=== PATIENT | male | born 1975 | race Caucasian/White ===

== ENCOUNTER 2021-02-02 08:23 | Emergency (ER) | payer OTHER, SELFPAY ==
--- NOTE | ~2021-02-02 | XR_ITS ---
EXAMINATION: XR hand RT min 3V EXAM DATE: 02/02/2021 09:03 INDICATION: Right hand pain. No history of injury provided at this time. TECHNIQUE: Right hand frontal, lateral and oblique projections obtained and reviewed. There is no pr ior study for comparison. FINDINGS: Right metacarpal bones are unremarkable. There are no acute fractures or dislocations iden tified. There is no subcutaneous gas. The soft tissue is unremarkable. There are no radiopaque fo reign bodies. There are no bony erosions identified. IMPRESSION: 1. XR hand RT min 3V exam without acute osseous findings. Reviewed, dictated and finalized at location B. HAND MAINTENANCE
[2021-02-02 09:30] VITALS: BP 150/99; PULSE 87; RESP 18; TEMP 37.1; O2SAT 99
--- NOTE | 2021-02-02 09:33 | ED.UPPEXIN ---
HPI - Extremity Injury (Upper) General Chief Complaint: Extremity Injury, Upper Stated Complaint: table saw VS hand Time Seen by Provider: 02/02/21 09:13 Source: patient Mode of arrival: ambulatory Limitations: no limitations History of Present Illness HPI narrative: This is a 45 year old male that presents to the ER for injury to the right hand sustained just prior to arrival. Reports he was using a table saw to cut a piece of wood and the saw kicked back and the piece of wood flew out at his hand. Reports a laceration to the area and pain. He is not up to date on tetanus. Denies decreased ROM or numbness. Related Data Allergies Allergy/AdvReac Type Severity Reaction Status Date / Time No Known Allergies Allergy Verified 03/25/17 20:55 Review of Systems Review of Systems: CONSTITUTIONAL: Denies fever SKIN: Reports laceration MUSCULOSKELETAL: Reports myalgia. NEUROLOGIC: Denies numbness All systems reviewed & are unremarkable except as noted in HPI and below PMFSH Past Medical History Medical History (Updated 02/02/21 @ 10:32 by Nupur Napoles PA-C) History of hypertension Social History Social History (Updated 02/02/21 @ 09:35 by Nupur Napoles PA-C) Smoking status: Current every day smoker Tobacco type: e-cigarettes/vaping Exam Narrative: GENERAL: Well-appearing, well-nourished, and in no acute distress. HEAD: Normocephalic, atraumatic. EYES: EOMI. EXTREMITIES: Normal range of motion. No edema or obvious deformity. Normal radial pulses. Normal sensation. 2cm flap laceration to the dorsal surface of the right hand into subcutaneous tissue SKIN: Warm, dry, no rash. NEURO: No focal deficits. Alert and oriented x3. PSYCH: Normal mood and affect Course Vital Signs Vital signs: Vital Signs Temperature 98.7 F 02/02/21 09:30 Pulse Rate 87 02/02/21 09:30 Respiratory Rate 18 02/02/21 09:30 Blood Pressure 150/99 H 02/02/21 09:30 Pulse Oximetry 99 02/02/21 09:30 Temperature 98.7 F 02/02/21 09:30 Pulse Rate 87 02/02/21 09:30 Respiratory Rate 18 02/02/21 09:30 Blood Pressure 150/99 H 02/02/21 09:30 Pulse Oximetry 99 12/15/21 09:30 Procedures Laceration Laceration 1: Date: 02/02/21 Time: 10:30 Site: hand Side (If applicable): right Size (cm): 2 Description: flap Depth: simple, single layer Local Anesthetic: lidocaine 1% and with epi Amount of anesthesia used (mL): 2 Pre-repair: wound explored and irrigated ====== Skin Level ====== Skin layer closed with: nylon Size (cm): 4-0 Number of sutures: 3 Technique: simple, interrupted ====== Subcutaneous Layer ====== ====== Muscle Layer ====== ====== Tendon Layer ====== MDM - Extremity Injury (Upper) MDM Narrative Medical decision making narrative: Patient presents emergency department for laceration of the right hand sustained just prior to arrival. Patient is neurovascularly intact. Wound was irrigated and closed with sutures. Right hand x-ray without acute osseous abnormalities. Patient will be started on prophylactic antibiotic as this is a bit of a puncture wound and on the hand. He was educated on wound care. He is to follow-up with primary care doctor. He was given warnings to return to the ER Imaging Data Radiologist's impression: ITS Impressions Hand X-Ray 02/02/21 09:05 IMPRESSION: 1. XR hand RT min 3V exam without acute osseous findings. Critical Care Time Critical Care Time Critical Care Time: No Discharge Plan Discharge Clinical Impression: Laceration Patient Disposition: Home, Self-Care Condition: Stable Instructions: Antibiotic Form, Care For Your Stitches (ED), Laceration (ED) Additional Instructions: Return to the emergency department if you experience fever, redness or swelling of your wound, abnormal drainage from your wound, or any other sym
[2021-02-02] MEDS: TETANUS,DIPHTHERIA,AC PERTUSSIS ADULT (0.5 ML) BOOSTRIX IM (10:20)
--- NOTE | 2021-02-02 10:45 | PC.NURSE ---
JHOAN Napoles completed stitches pt tolerated well, she wrapped area, pt denied any additional pain pulses normal, will discharge soon
[2021-02-02 11:01] VITALS: BP 160/92; PULSE 88; RESP 18; O2SAT 98
== END 2021-02-02 11:02 | disposition home or self-care (01) ==
PROVIDERS: Emergency Provider Emergency Medicine; PCP Family Medicine Adolescent Medicine
DX: S61.411A Laceration without foreign body of right hand, initial encounter (principal); I10 Essential (primary) hypertension; F17.290 Nicotine dependence, other tobacco product, uncomplicated; Z23 Encounter for immunization; W26.8XXA Contact with other sharp object(s), not elsewhere classified, initial encounter
CPT/HCPCS: 12001; 73130; 90471; 90715; 99283

== ENCOUNTER 2022-09-27 08:14 | Outpatient (CLI) | payer OTHER, SELFPAY ==
--- NOTE | 2022-10-18 11:35 | WPDSLEEPSTUD ---
Sleep Study Date of Study: 09/27/22 Ordering Provider: Briana Bonilla APRN Interpreting Physician: Radhika Vega MD Sleep Study Type: CPAP Titration Height: 1.7 m Weight: 139.706 kg Body Mass Index: 48.2 Neck Circumference (inches): 20 [place]: 11 Reason for Sleep Study He has obstructive sleep apnea on CPAP, most recent compliance report shows that he uses CPAP 10 cm with 2 cm EPR. His AHI is 8.8, no central apneas. He had no Jose-Tyson respirations. He used greater than 96% the days for 4 hours or more. He is compliant with CAPP but does not feel rested; presents for a CPAP titration. Sleep History Deny Rae is a 47-year old man Who frequently awakens from sleep feeling short of breath. He occasionally awakens at night with heartburn, belching or coughing. He always snores loudly enough that others complain about it. He frequently has difficulty sleeping with a cold. He occasionally wakes up gasping for breath at night. He frequently has breathing problems at night observed by others. He rarely sweats excessively at night and rarely notices his heart beating irregularly at night. He does not fall asleep during the day, does not fall asleep involuntarily or while driving. He does not have loss of muscle tone with strong emotion. He occasionally has daytime difficulties due to excessive sleepiness. He is a allison. He does not feel paralyzed on waking or falling asleep. He does not have vivid dreamlike scenes on waking or falling asleep. He does not feel afraid to go to sleep. He does not have nightmares. He does not remember his dreams. He occasionally has racing thoughts. He occasionally feels sad or depressed. He does not have anxiety. He occasionally has muscular tension. He rarely notices parts of his body jerking. He frequently kicks at night. He does not have crawling or aching feelings in his legs. He rarely has any kind of leg pain at night. He does not have morning jaw pain. He does not grind his teeth during sleep. He occasionally is bothered by pain during the day. He rarely is awakened by pain at night. He occasionally wakes up feeling stiff in the morning with sore achy muscles and pain in the neck and spine. He has headaches and fatigue. Normal bedtime is 9:30 p.m., falling asleep within minutes. He typically wakes between 5 and 6 times during the night to go to the bathroom and then he returns to sleep. It takes him about 5/10 minutes to return to sleep. He wakes the morning between 6 and 7:00 a.m.. On weekends, his bedtime may be as late as midnight and he sleeps until 8-9 in the morning. He estimates getting between 7 and 8 hours of sleep at night. He does not generally take naps in the afternoon or evening. A short nap lasting 10-15 minutes is not refreshing. He is usually drowsy for 2 hours after waking. He feels better in the evening compared to other times of day. Habits: Tobacco: he vapes. Caffeine: 2-3 daily. Alcohol: Social drinker. Recreational: None. [facility] Past Medical History Medical History Hypertension Major depressive disorder, recurrent, mild Morbid obesity with BMI of 45.0-49.9, adult JAKE on CPAP Surgical History Surgical History Vasectomy status Family History Family History Father Acute myocardial infarction Triple and quadruple bypass Congestive heart failure Hypertension Heart disease Grandparent Acute myocardial infarction Congestive heart failure Grandparent Congestive heart failure Grandparent Breast cancer Other Malignant neoplasm of prostate Diabetes mellitus Mother Asthma Hypertension Sibling Cancer Hypertension Large cell lymphoma Other Depression Social History Social History Smo
[2022-10-18 12:33] VITALS: BMI 48.2
== END 2022-09-28 06:53 | disposition home or self-care (01) ==
LOC: ANHCSM 08:16
PROVIDERS: PCP Family Medicine Adolescent Medicine; Visit Provider Nurse Practitioner Family
DX: G47.33 Obstructive sleep apnea (adult) (pediatric) (principal); I10 Essential (primary) hypertension; R68.82 Decreased libido; E66.01 Morbid (severe) obesity due to excess calories; F33.0 Major depressive disorder, recurrent, mild; F17.290 Nicotine dependence, other tobacco product, uncomplicated; Z68.42 Body mass index [BMI] 45.0-49.9, adult; Z99.89 Dependence on other enabling machines and devices
CPT/HCPCS: 95811

== ENCOUNTER 2022-10-20 01:46 | Day surgery (SDC) | payer OTHER, SELFPAY ==
[2022-10-06 12:28] VITALS: BMI 48.3
--- NOTE | 2022-10-19 07:51 | PM.HPGS ---
History of Present Illness History of Present Illness Consent: Risks, benefits, and alternatives have been discussed and questions answered. Patient agrees to proceed with procedure. Chief complaint: neoplasm screening Narrative: Deny Rae is a 47 year old male Referred for colon cancer screening. Review of Systems Review of Systems: All systems reviewed & are unremarkable except as noted in HPI and below PMFSH Past Medical History Medical History Hypertension Major depressive disorder, recurrent, mild Morbid obesity with BMI of 45.0-49.9, adult JAKE on CPAP Surgical History Surgical History Vasectomy status Family History Family History Father Acute myocardial infarction Triple and quadruple bypass Congestive heart failure Hypertension Heart disease Grandparent Acute myocardial infarction Congestive heart failure Grandparent Congestive heart failure Grandparent Breast cancer Other Malignant neoplasm of prostate Diabetes mellitus Mother Asthma Hypertension Sibling Cancer Hypertension Large cell lymphoma Other Depression Social History Social History Smoking status: Current every day smoker Tobacco type: e-cigarettes/vaping Second hand tobacco smoke exposure: No Alcohol intake: current Alcohol use details: Social Substance use: never Substance use type: does not use Lack of Transportation: No Lack of Food: Never True Current Housing: I Have Housing Concerned About Future Housing: No Difficulty Paying Gas/Electric Bills: No Difficulty Paying for Meds: No Currently Unemployed: No Education: Trade/Vocational Certificate Difficulty w/ Childcare or Family Care: No Living arrangements: with family Occupation/Education: occupation Gender identity (if verbalized by the patient): Male Sexual Orientation (if Verbalized by the Patient): Straight or Heterosexual Spiritual care concerns: No Agree to blood products: Yes Meds Home Medications and Allergies Home Medications Medication Instructions Recorded Confirmed Type amlodipine 5 mg tablet 5 mg PO DAILY #30 tabs 08/14/22 10/06/22 Rx hydrochlorothiazide 25 mg tablet 25 mg PO DAILY #30 tabs 08/14/22 10/06/22 Rx lisinopril 40 mg tablet 40 mg PO DAILY #30 tabs 08/14/22 10/06/22 Rx venlafaxine 37.5 mg tablet 37.5 mg PO BID #60 tabs 08/14/22 10/06/22 Rx Allergies Allergy/AdvReac Type Severity Reaction Status Date / Time No Known Allergies Allergy Verified 10/20/22 06:19 Exam Const: Nutritional Appearance: obese Resp: Auscultation: clear to auscultation bilaterally Cardio: Rate: regular rate Rhythm: regular rhythm GI: GI Palp: Yes Soft to palpation and No Tenderness to palpation present (GI) Assessment and Plan Assessment and plan (1) Colon cancer screening: Code(s): Z12.11 - Encounter for screening for malignant neoplasm of colon Status: Acute Assessment and Plan: Colonoscopy with possible biopsy or polypectomy or cautery or injection of substances.
[2022-10-20 06:20] VITALS: BP 136/89; PULSE 84; RESP 16; TEMP 36.1; O2SAT 99
[2022-10-20] MEDS: LACTATED RINGERS 1,000 ML 150 ML IV CONT (06:35)
--- NOTE | 2022-10-20 07:15 | WPDANESEPPF ---
Anes - Initial Pre Proc Eval Procedure: Operation Date: 10/20/22 07:30 Proposed Procedures p Screening Colonoscopy - Jules Dunlap MD Date/Time: 10/20/22 07:15 Surgeon: Jules Dunlap MD Pre Op Diagnosis: neoplasm screening Patient Data Age: 47 Gender: M Height: 1.7 m Weight: 136.1 kg Last Vital Signs Temp 97 F L 10/20/22 06:20 Pulse 84 10/20/22 06:20 Resp 16 10/20/22 06:20 BP 136/89 10/20/22 06:20 Pulse Ox 99 10/20/22 06:20 O2 Del Method Room Air 10/20/22 06:20 Allergies Allergy/AdvReac Type Severity Reaction Status Date / Time No Known Allergies Allergy Verified 10/20/22 06:19 Home Medications Medication Instructions Recorded Confirmed Type amlodipine 5 mg tablet 5 mg PO DAILY #30 tabs 08/14/22 10/06/22 Rx hydrochlorothiazide 25 mg tablet 25 mg PO DAILY #30 tabs 08/14/22 10/06/22 Rx lisinopril 40 mg tablet 40 mg PO DAILY #30 tabs 08/14/22 10/06/22 Rx venlafaxine 37.5 mg tablet 37.5 mg PO BID #60 tabs 08/14/22 10/06/22 Rx Patient hx anesthesia problems: none Family hx anesthesia problems: none Results Review: All pre-operative results and documents have been reviewed as part of the pre-operative evaluation. [facility] Past Medical History Medical History Hypertension Major depressive disorder, recurrent, mild Morbid obesity with BMI of 45.0-49.9, adult JAKE on CPAP Surgical History Surgical History Vasectomy status Family History Family History Father Acute myocardial infarction Triple and quadruple bypass Congestive heart failure Hypertension Heart disease Grandparent Acute myocardial infarction Congestive heart failure Grandparent Congestive heart failure Grandparent Breast cancer Other Malignant neoplasm of prostate Diabetes mellitus Mother Asthma Hypertension Sibling Cancer Hypertension Large cell lymphoma Other Depression Social History Social History Smoking status: Current every day smoker Tobacco type: e-cigarettes/vaping Second hand tobacco smoke exposure: No Alcohol intake: current Alcohol use details: Social Substance use: never Substance use type: does not use Lack of Transportation: No Lack of Food: Never True Current Housing: I Have Housing Concerned About Future Housing: No Difficulty Paying Gas/Electric Bills: No Difficulty Paying for Meds: No Currently Unemployed: No Education: Trade/Vocational Certificate Difficulty w/ Childcare or Family Care: No Living arrangements: with family Occupation/Education: occupation Gender identity (if verbalized by the patient): Male Sexual Orientation (if Verbalized by the Patient): Straight or Heterosexual Spiritual care concerns: No Agree to blood products: Yes Anes - Eval Final PreProcedure Day of Procedure 10/20/22 07:15 Patient weight: morbidly obese Heart: regular rate and rhythm Lungs: clear to auscultation Airway: Mallampati scale class III Neurological: alert and oriented Last oral intake: >/= 8 hours ASA classification: III Emergent: no Anesthetic plan: proceed Anesthesia type and monitoring: general GIVS and standard monitoring Results Review: All pre-operative results and documents have been reviewed as part of the pre-operative evaluation. Informed Consent: The patient's anesthetic plan and its attendant risks and benefits were discussed with the patient/family/POA. Questions were solicited and answers provided to the satisfaction of the patient/family/POA.
[2022-10-20 07:49] VITALS: BP 147/102; PULSE 82; RESP 22; O2SAT 98
[2022-10-20 07:59] VITALS: BP 138/97; PULSE 75; RESP 18; O2SAT 98
[2022-10-20 08:09] VITALS: BP 138/98; PULSE 80; RESP 18; O2SAT 99
== END 2022-10-20 08:15 | disposition home or self-care (01) ==
PROVIDERS: PCP Family Medicine Adolescent Medicine; Visit Provider Internal Medicine Gastroenterology
PROC: 0DJD8ZZ Inspection of Lower Intestinal Tract, Via Natural or Artificial Opening Endoscopic (ICD-10-PCS; CPT 45378; principal; 2022-10-20 07:30)
DX: Z12.11 Encounter for screening for malignant neoplasm of colon (principal); K57.30 Diverticulosis of large intestine without perforation or abscess without bleeding; I10 Essential (primary) hypertension; G47.33 Obstructive sleep apnea (adult) (pediatric); F33.0 Major depressive disorder, recurrent, mild; E66.01 Morbid (severe) obesity due to excess calories; Z68.42 Body mass index [BMI] 45.0-49.9, adult; F17.290 Nicotine dependence, other tobacco product, uncomplicated
CPT/HCPCS: 45378; J2704; J7120

== ENCOUNTER 2024-11-14 12:48 | Observation (INO) | payer OTHER, SELFPAY ==
[2024-11-14] VITALS (10 sets, daily range): BP systolic 113–141; BP diastolic 61–77; PULSE 80–106; RESP 16–21; TEMP 36.7–36.9; O2SAT 95–100; BMI 45.1
--- NOTE | ~2024-11-14 | CT_ITS ---
EXAMINATION: CTA chest abdomen pelvis DATE: 11/14/2024 15:00 CDT INDICATION: Chest pain. Elevated lipase. TECHNIQUE: Computed tomographic angiography (CTA) of the chest, abdomen, and pelvis was performed without and with 100 mL Omnipaque-350 intravenous contrast. The dose-length product was 1926.40 mGy-cm. Maximum intensity projection 3D- reconstructions of the aorta and other arteries were constructed by the technologist on a separate workstation. COMPARISON: CT dated 09/18/2013. FINDINGS: CHEST CTA: Heart size normal. No significant pleural or pericardial effusion. No thoracic lymphadenopathy. There is a 1.6 cm hypovascular mass of the right thyroid lobe. There is dependent atelectasis. No focal consolidation to suggest pneumonia. No endobronchial lesions. No pneumothorax. No central pulmonary embolism. Aorta is within normal limits without aneurysm or dissection. Mild thoracic spondylosis. ABDOMEN AND PELVIS CTA: Fatty infiltration of the liver. Gallbladder is contracted. The spleen, pancreas, adrenal glands and kidneys are unremarkable. No significant vascular abnormality. No lymphadenopathy. Bladder is unremarkable. No abnormal pelvic masses or fluid collections. No free air or free fluid. Moderate lower thoracic and upper lumbar spondylosis. IMPRESSION: 1. No acute abnormality of the chest, abdomen or pelvis. Reviewed, dictated and finalized at location O.
--- NOTE | ~2024-11-14 | US_ITS ---
EXAMINATION: US thyroid DATE: 11/15/2024 13:21 INDICATION: Right thyroid nodule. TECHNIQUE: Multiple ultrasound images of the thyroid were obtained. COMPARISON: None. FINDINGS: The right thyroid lobe measures 4.5 x 1.8 x 2.2 cm. The left thyroid lobe measures 1.4 x 1.4 x 3.2 cm. In the right thyroid lobe, there is a 2.7 cm mixed cystic and solid, isoechoic, wider than tall nodule with ill-defined margin without echogenic foci (TI-RADS TR2). IMPRESSION: 1. Right thyroid nodule, likely not clinically significant. No follow-up is needed. Reviewed, dictated and finalized at location E. IMPRESSION: 1. Right thyroid nodule, likely not clinically significant. No follow-up is nee ded.
--- NOTE | ~2024-11-14 | XR_ITS ---
Examination: XR chest 2V Clinical History: CP Comparison: No recent comparison Technique: PA and Lateral Findings: Cardiomediastinal silhouette normal size and configuration. Lungs clear. No acute bony abnormality. IMPRESSION: 1. No acute cardiopulmonary findings. Reviewed, dictated and finalized at location R.
--- NOTE | 2024-11-14 12:53 | ECG_ITS ---
Test Date: 2024-11-14 12:56:19 Measurements Intervals [place] Rate: 96 P: 64 FL: 151 QRS: 54 QRSD: 104 T: 47 QT: 356 QTc: 451 Interpretive Statements SINUS RHYTHM POSSIBLE LEFT ATRIAL ENLARGEMENT [-0.1mV P-WAVE IN V1/V2] POSSIBLE INFERIOR MYOCARDIAL INFARCTION , OF INDETERMINATE AGE [30 ms Q WAVE IN II/aVF] No previous ECG available for comparison Electronically Signed On 11-14-2024 20:06:04 CDT by Bety Graves M.D.
[2024-11-14 13:12] LABS: Hematocrit 43.7 % (42.0-52.0); Hemoglobin 14.4 g/dL (14.0-18.0); Immature Granulocyte Percent A 0.4 % (0-0.5); Lymphocytes Absolute Auto 1.46 K/mm3 (0.9-3.2); Mean Corpuscular HGB Conc 33.0 g/dl (32-36); Mean Corpuscular Hemoglobin 29.3 pg (26-34); Mean Corpuscular Volume 88.8 fl (80-100); Nucleated Red Blood Cells Absolute Auto 0.000 K/mm3 (0.0-0.012); Nucleated Red Blood Cells Perc 0.0 % (0.0-0.2); Platelet Count Result 493 k/mm3 (150-375); Red Blood Count 4.92 M/mm3 (4.6-6.20); White Blood Count 11.3 K/mm3 (4.5-10.0)
[2024-11-14 13:24] LABS: Alanine Aminotransferase 46 U/L (6-50); Albumin Level 4.3 g/dL (3.5-5.1); Alkaline Phosphatase 75 U/L (38-126); Anion Gap 11 mmol/L (4-12); Aspartate Amino Transferase 27 U/L (17-59); Bilirubin,Total 0.5 mg/dL (0.2-1.3); Blood Urea Nitrogen 24 mg/dL (9-20); Calcium 8.9 mg/dL (8.4-10.2); Carbon Dioxide 25 mmol/L (22-30); Chloride 100 mmol/L (98-107); Estimated CRCL calculation 78 ml/min; Estimated Glomerular Filt Rate 53; Glucose 93 mg/dL (65-110); Lipase 962 U/L (23-300); Potassium 4.0 mmol/L (3.4-5.0); Sodium 136 mmol/L (137-145); Total Protein 7.9 g/dL (6.3-8.2)
[2024-11-14 13:32] LABS: INR 1.3; Prothrombin Time 15.9 Seconds (11.1-14.7)
[2024-11-14 13:33] LABS: Partial Thromboplastin Time 28.5 Seconds (22.3-36.8)
[2024-11-14 13:41] LABS: Troponin I < 0.012 ng/mL (0.000-0.034)
--- NOTE | 2024-11-14 14:37 | ED.CHESTPAIN ---
HPI - Chest Pain General Chief Complaint: Chest Pain <Nupur Napoles PA-C - Last Filed: 11/14/24 17:24> Stated Complaint: Chest Pain <Nupur Napoles PA-C - Last Filed: 11/14/24 17:24> Time Seen by Provider: 11/14/24 14:37 <Nupur Napoles PA-C - Last Filed: 11/14/24 17:24> Focused HPI: This is a 49-year-old male that presents to the emergency department for chest pain. Reports he has been feeling unwell over the last 2 weeks. Reports fevers, vomiting. Reports today he had an episode of substernal chest pain radiating to the left arm which prompted him to be seen. GENERAL: Uncomfortable, well-nourished, and in no acute distress. HEAD: Normocephalic, atraumatic. CHEST: Clear to auscultation. ?No respiratory distress. HEART: Regular rate and rhythm.? NEURO: ?Alert and oriented x3. Patient screened in triage and initial orders placed.? ?Additional care and disposition to be based upon?diagnostic testing and treatment. <Nupur Napoles PA-C - Last Filed: 11/14/24 17:24> History of Present Illness HPI narrative: I agree with the above patient <Rizwan Meza MD - Last Filed: 11/14/24 19:00> Related Data Home Medications: Home Medications ?Medication ?Instructions ?Recorded ?Confirmed ?Last Taken ?Type venlafaxine 37.5 mg tablet 75 mg PO HS 11/14/24 11/14/24 11/13/24 History <Nupur Napoles PA-C - Last Filed: 11/14/24 17:24> Allergies/Adverse Reactions: Allergies Allergy/AdvReac Type Severity Reaction Status Date / Time No Known Allergies Allergy Verified 11/14/24 15:11 <Nupur Napoles PA-C - Last Filed: 11/14/24 17:24> Review of Systems Review of Systems: All systems reviewed & are unremarkable except as noted in HPI and below <Nupur Napoles PA-C - Last Filed: 11/14/24 17:24> PMFSH Past Medical History Medical History: Medical History (Updated 11/14/24 @ 17:40 by Faustina Oconnor APRN) Type 2 diabetes mellitus Morbid obesity with BMI of 45.0-49.9, adult Major depressive disorder, recurrent, mild JAKE on CPAP Hypertension <Nupur Napoles PA-C - Last Filed: 11/14/24 17:24> Surgical History Surgical History: Surgical History Vasectomy status <Nupur Napoles PA-C - Last Filed: 11/14/24 17:24> Family History Family History: Family History Father Acute myocardial infarction Triple and quadruple bypass Congestive heart failure Hypertension Heart disease Grandparent Acute myocardial infarction Congestive heart failure Breast cancer Mother Asthma Hypertension Sibling Cancer Hypertension Large cell lymphoma Other Depression <Nupur Napoles PA-C - Last Filed: 11/14/24 17:24> Social History Social History: Social History (Updated 05/06/24 @ 14:36 by BENITA Irving) Years smoked: 32 Smoking status: Current every day smoker Tobacco type: e-cigarettes/vaping Second hand tobacco smoke exposure: No Alcohol intake: never Alcohol use details: Social Substance use: never Substance use type: does not use Do You Feel Safe in your Home?: Yes Lack of Transportation: No Lack of Food: Never True Current Housing: I Have Housing Concerned About Future Housing: No Difficulty Paying Gas/Electric Bills: No Difficulty Paying for Meds: No Currently Unemployed: No Education: Don't Know Difficulty w/ Childcare or Family Care: No Living arrangements: with family Occupation/Education: occupation Gender identity (if verbalized by the patient): Male Sexual Orientation (if Verbalized by the Patient): Straight or Heterosexual Spiritual care concerns: No Agree to blood products: Yes <ANSELMO Thornton Last Filed: 11/14/24 17:24> Exam Narrative: APPEARANCE: Well appearing, no pain, no distress, well-nourished. HEAD: normocephalic, atraumatic. EYES: PERRLA/EOMI, conjunctivae clear. NOSE: Normal no drainage EARS:TMS clear with good light reflex. THROAT: Pharynx clear, no exudate. NECK: Supple. No adenopathy, no masses. RESPIRATORY: Airway patent, respirations nonlabored. Clear to auscultation bilaterally, no rales, rhonchi, wheezing. CARDIOVASCULAR: Regular rate and rhythm without murmurs rubs or gallops. ABDOMINAL: Soft, nontender, nondistended, normal bowel sounds MUSCULOSKELETAL: Moves all extremities. Strength/ROM intact, No edema, No calf tenderness. NEURO: Alert. Cranial nerves II through XII intact. Good gait. Good coordination SKIN: Warm, dry. Normal Color <Rizwan Meza MD - Last Filed: 11/14/24 19:00> Course Vital Signs Vital signs: Vital Signs Temperature 98.2 F 11/14/24 12:54 Pulse Rate 100 11/14/24 12:54 Respiratory Rate 16 11/14/24 12:54 Blood Pressure 123/71 11/14/24 12:54 Pulse Oximetry 100 11/14/24 12:54 Temperature 98.4 F 11/14/24 17:20 Pulse Rate 80 11/14/24 18:00 Respiratory Rate 18 11/14/24 17:20 Blood Pressure 141/77 H 11/14/24 17:20 Pulse Oximetry 96 11/14/24 17:20 Oxygen Delivery Room Air 11/14/24 15:09 <Nupur Napoles PA-C - Last Filed: 11/14/24 17:24> Vital Signs Temperature 98.2 F 11/14/24 12:54 Pulse Rate 100 11/14/24 12:54 Respiratory Rate 16 11/14/24 12:54 Blood Pressure 123/71 11/14/24 12:54 Pulse Oximetry 100 11/14/24 12:54 Temperature 98.4 F 11/14/24 17:20 Pulse Rate 80 11/14/24 18:00 Respiratory Rate 18 11/14/24 17:20 Blood Pressure 141/77 H 11/14/24 17:20 Pulse Oximetry 96 11/14/24 17:20 Oxygen Delivery Room Air 11/14/24 15:09 <Rizwan Meza MD - Last Filed: 11/14/24 19:00> MDM - Chest Pain MDM Narrative Medical decision making narrative: 49-year-old male presents to the emergency department for evaluation for intermittent chest pain. Patient does have history of diabetes, hypertension, high cholesterol. Patient has no prior history of [place]. patient did have an episode of chest pain in the emergency department he states radiate to his left arm and up to his jaw. Patient is currently afebrile but does have a leukocytosis of 11.3 hemoglobin of 14.4. INR of 1.3. Patient has a creatinine 1.43 which is higher than his baseline. Lipase was elevated at 9 7 2 but patient has no reproducible tenderness to his abdomen concerning for acute pancreatitis, patient does take Ozempic. Patient was negative for influenza RSV and for COVID. CTA chest abdomen pelvis was ordered this was negative for pulmonary embolism but also showed no evidence of underlying pancreatitis. Case was discussed with hospitalist and they were admitted for further cardiac workup for concern for stable angina. Patient has never had a stress test. Patient does have multiple risk factors. All questions concerns were addressed patient does prefer to stay for admission. Patient was admitted to the IMU. <Rizwan Meza MD - Last Filed: 11/14/24 19:00> Differential Diagnosis Differential diagnosis: Likely other (COVID, RSV, influenza, pneumonia, pneumothorax, ACS, pulmonary embolism) <Rizwan Meza MD - Last Filed: 11/14/24 19:00> Lab Data Attestation: I reviewed the patient's lab results. <Rizwan Meza MD - Last Filed: 11/14/24 19:00> Result diagrams: 11/14/24 13:02 11/14/24 13:02 <Nupur Napoles PA-C - Last Filed: 11/14/24 17:24> Labs: Lab Results 11/14/24 Range/Units 13:02 WBC 11.3 H (4.5-10.0) K/mm3 RBC 4.92 (4.6-6.20) M/mm3 Hgb 14.4 (14.0-18.0) g/dL Hct 43.7 (42.0-52.0) % MCV 88.8 (80-100) fl MCH 29.3 (26-34) pg MCHC 33.0 (32-36) g/dl RDW 13.5 (11.5-14.5) % Plt Count 493 H (150-375) k/mm3 MPV 8.4 (7.4-10.4) fl Immature Gran % (Auto) 0.4 (0-0.5) % Neut % (Auto) 72.4 (45.5-73.1) % Lymph % (Auto) 12.9 L (18.3-44.2) % [place] % (Auto) 11.6 H (2.6-8.5) % Eos % (Auto) 2.4 (0-4.4) % Baso % (Auto) 0.3 (0.2-1.2) % Lymph # (Auto) 1.46 (0.9-3.2) K/mm3 [place] # (Auto) 1.3 H (0.1-0.6) K/mm3 Eos # (Auto) 0.3 (0-0.3) K/mm3 Baso # (Auto) 0.0 (0.0-0.1) K/mm3 Abs Immat Gran (auto) 0.04 H (0.00-0.031) K/mm3 Absolute Neuts (auto) 8.2 H (1.3-6.7) K/mm3 Absolute Nucleated RBC 0.000 (0.0-0.012) K/mm3 Nucleated RBC % 0.0 (0.0-0.2) % PT 15.9 H (11.1-14.7) Seconds INR 1.3 APTT 28.5 (22.3-36.8) Seconds Sodium 136 L (137-145) mmol/L Potassium 4.0 (3.4-5.0) mmol/L Chloride 100 (98-107) mmol/L Carbon Dioxide 25 (22-30) mmol/L Anion Gap 11 (4-12) mmol/L BUN 24 H (9-20) mg/dL Creatinine 1.43 H (0.7-1.3) mg/dL Estim Creat Clear Calc 78 ml/min Estimated GFR 53 L (59 - ) Glucose 93 (65-110) mg/dL Calcium 8.9 (8.4-10.2) mg/dL Total Bilirubin 0.5 (0.2-1.3) mg/dL AST 27 (17-59) U/L ALT 46 (6-50) U/L Alkaline Phosphatase 75 (38-126) U/L Troponin I < 0.012 (0.000-0.034) ng/mL Total Protein 7.9 (6.3-8.2) g/dL Albumin 4.3 (3.5-5.1) g/dL Triglycerides 91 (<150) mg/dL Cholesterol 128 (0-200) mg/dL LDL Cholesterol Direct 58 mg/dL HDL Direct 40 mg/dL Lipase 962 H (23-300) U/L <Nupur Napoles PA-C - Last Filed: 11/14/24 17:24> Lab Results 11/14/24 Range/Units 13:02 WBC 11.3 H (4.5-10.0) K/mm3 RBC 4.92 (4.6-6.20) M/mm3 Hgb 14.4 (14.0-18.0) g/dL Hct 43.7 (42.0-52.0) % MCV 88.8 (80-100) fl MCH 29.3 (26-34) pg MCHC 33.0 (32-36) g/dl RDW 13.5 (11.5-14.5) % Plt Count 493 H (150-375) k/mm3 MPV 8.4 (7.4-10.4) fl Immature Gran % (Auto) 0.4 (0-0.5) % Neut % (Auto) 72.4 (45.5-73.1) % Lymph % (Auto) 12.9 L (18.3-44.2) % [place] % (Auto) 11.6 H (2.6-8.5) % Eos % (Auto) 2.4 (0-4.4) % Baso % (Auto) 0.3 (0.2-1.2) % Lymph # (Auto) 1.46 (0.9-3.2) K/mm3 [place] # (Auto) 1.3 H (0.1-0.6) K/mm3 Eos # (Auto) 0.3 (0-0.3) K/mm3 Baso # (Auto) 0.0 (0.0-0.1) K/mm3 Abs Immat Gran (auto) 0.04 H (0.00-0.031) K/mm3 Absolute Neuts (auto) 8.2 H (1.3-6.7) K/mm3 Absolute Nucleated RBC 0.000 (0.0-0.012) K/mm3 Nucleated RBC % 0.0 (0.0-0.2) % PT 15.9 H (11.1-14.7) Seconds INR 1.3 APTT 28.5 (22.3-36.8) Seconds Sodium 136 L (137-145) mmol/L Potassium 4.0 (3.4-5.0) mmol/L Chloride 100 (98-107) mmol/L Carbon Dioxide 25 (22-30) mmol/L Anion Gap 11 (4-12) mmol/L BUN 24 H (9-20) mg/dL Creatinine 1.43 H (0.7-1.3) mg/dL Estim Creat Clear Calc 78 ml/min Estimated GFR 53 L (59 - ) Glucose 93 (65-110) mg/dL Calcium 8.9 (8.4-10.2) mg/dL Total Bilirubin 0.5 (0.2-1.3) mg/dL AST 27 (17-59) U/L ALT 46 (6-50) U/L Alkaline Phosphatase 75 (38-126) U/L Troponin I < 0.012 (0.000-0.034) ng/mL Total Protein 7.9 (6.3-8.2) g/dL Albumin 4.3 (3.5-5.1) g/dL Triglycerides 91 (<150) mg/dL Cholesterol 128 (0-200) mg/dL LDL Cholesterol Direct 58 mg/dL HDL Direct 40 mg/dL Lipase 962 H (23-300) U/L <Rizwan Meza MD - Last Filed: 11/14/24 19:00> Imaging Data Radiologist's impression: Impressions Chest X-Ray 11/14/24 13:28 IMPRESSION: 1. No acute cardiopulmonary findings. Chest/Abdomen/Pelvis CTA 11/14/24 15:00 IMPRESSION: 1. No acute abnormality of the chest, abdomen or pelvis. <Rizwan Meza MD - Last Filed: 11/14/24 19:00> Critical Care Time Critical Care Time Critical Care Time: No <Nupur Napoles PA-C - Last Filed: 11/14/24 17:24> Discharge Plan Discharge Clinical Impression: Stable angina Chest pain Qualifiers: Chest pain type: unspecified Qualified Code(s): R07.9 - Chest pain, unspecified <Nupur Napoles PA-C - Last Filed: 11/14/24 17:24> Patient Disposition: Still a Patient <Nupur Napoles PA-C - Last Filed: 11/14/24 17:24> Condition: Serious <Nupur Napoles PA-C - Last Filed: 11/14/24 17:24> Quality HEART score for chest pain patients History: moderately suspicious <Rizwan Meza MD - Last Filed: 11/14/24 19:00> ECG: normal <Rizwan Meza MD - Last Filed: 11/14/24 19:00> Age: > 45 and < 65 years <Rizwan Meza MD - Last Filed: 11/14/24 19:00> Risk factors: > or = to 3 risk factors of atherosclerotic disease <Rizwan Meza MD - Last Filed: 11/14/24 19:00> Troponin: < or = to 1x normal limit <Rizwan Meza MD - Last Filed: 11/14/24 19:00> Heart score: 4 <Rizwan Meza MD - Last Filed: 11/14/24 19:00>
[2024-11-14] MEDS: SODIUM CHLORIDE 0.9% IV 1,000 ML 999 ML IV CONT (15:45)
[2024-11-14] MEDS: ASPIRIN 81 MG CHEWABLE TABLET 324 MG PO (15:46)
--- NOTE | 2024-11-14 15:46 | ECG_ITS ---
Test Date: 2024-11-14 15:44:10 Measurements Intervals [place] Rate: 94 P: 67 MD: 166 QRS: 52 QRSD: 100 T: 51 QT: 366 QTc: 459 Interpretive Statements SINUS RHYTHM POSSIBLE LEFT ATRIAL ENLARGEMENT [-0.1mV P WAVE IN V1/V2] Compared to ECG 11/14/2024 12:56:19 Myocardial infarct finding no longer present Electronically Signed On 11-14-2024 20:00:01 CDT by Bety Graves M.D.
[2024-11-14 16:35] LABS: Troponin I < 0.012 ng/mL (0.000-0.034)
[2024-11-14 16:44] LABS: Influenza A QL RT-PCR Negative (Negative); Influenza B QL RT-PCR Negative (Negative); RSV RNA, RT-PCR Negative (Negative); SARS-CoV-2 RNA PCR Negative (Negative)
--- NOTE | 2024-11-14 17:08 | PC.NURSE ---
Meal tray ordered for pt
--- NOTE | 2024-11-14 17:23 | ADMGEN ---
This patient, Deny Rae, was admitted to IMU Room 212-01. Patient/family oriented to hospital policies and general routines including ID bracelet, bed and alarms, visiting hours, pain management, procedures, bathroom and other care routines, personal items, smoking policy, room service/diet, and visiting hours. Information on how to activate the Rapid Response Team has been discussed. Patient/Family are encouraged to report perceived risks to care and to ask questions if they do not understand what they are told or what they should do.
--- NOTE | 2024-11-14 17:30 | P.HP_ITS ---
H&P: HPI History of Present Illness Date/Time: 11/14/24 17:30 Chief Complaint: Chest pain Narrative: 49-year-old male past medical history of JAKE on CPAP and hypertension presents the hospital with chest pain that radiates up to his jaw and left arm. He states that he has been feeling unwell for the last 2 weeks and has had fever and vomiting. Last several days she just being getting out of bed due to feelin g so sick. He states that on Sunday he was nauseous and vomiting. Patient has complaints of general malaise. On bedside exam he denies nausea vomiting, chest pain, jaw pain, arm pain. Lab work shows leukocytosis at 13.3, platelets of for her 93, sodium of 136, BUN of 24, creatinine 1.43, GFR of 53 no known history of CKD, 1st and 2nd troponin negative, lipase 962, influenza A/B, RSV, COVID negative. 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 EKG shows sinus rhythm Review of Systems Review of Systems: 12 systems were reviewed and are negativ e except for as per HPI. [facility] Past Medical History Medical History (Updated 11/14/24 @ 23:30 by Faustina Oconnor APRN) Type 2 diabetes mellitus Morbid obesity with BMI of 45.0-49.9, adult Major depressive disorder, recurrent, mild JAKE on CPAP Hypertension Surgical History Surgical History Vasectomy status Family History Family History Father Acute myocardial infarction Triple and quadruple bypass Congestive heart failure Hypertension Heart disease Grandparent Acute myocardial infarction Congestive heart failure Breast cancer Mother Asthma Hypertension Sibling Cancer Hypertension Large cell lymphoma Other Depression Social History Social History (Updated 05/06/24 @ 14:36 by BENITA Irving) Years smoked: 32 Smoking status: Current every day smoker Tobacco type: e-cigarettes/vaping Second hand tobacco smoke exposure: No Alcohol intake: never Alcohol use details: Social Substance use: never Substance use type: does not use Do You Feel Safe in your Home?: Yes Lack of Transportation: No Lack of Food: Never True Current Housing: I Have Housing Concerned About Future Housing: No Difficulty Paying Gas/Electric Bills: No Difficulty Paying for Meds: No Currently Unemployed: No Education: Don't Know Difficulty w/ Childcare or Family Care: No Living arrangements: with family Occupation/Education: occupation Gender identity (if verbalized by the patient): Male Sexual Orientation (if Verbalized by the Patient): Straight or Heterosexual Spiritual care concerns: No Agree to blood products: Yes Meds Home Medications and Allergies Home Medications ?Medication ?Instructions ?Recorded ?Confirmed ?Type atorvastatin 10 mg tablet See Rx Instructions .Route 0 05/02/24 11/14/24 Rx .COMPLEX #30 tabs semaglutide 1 mg/dose (4 mg/3 mL) 1 mg (0.75 mL) subcu t WEEKLY #3 mL 10/23/24 11/14/24 Rx subcutaneous pen injector amlodipine 5 mg tablet 5 mg PO QHS 11/14/24 5 History bupropion HCl 150 mg 24 hr tablet, 150 mg PO QHS 11/1411/14/24 History extended release (Wellbutrin XL) hydrochlorothiazide 25 mg tablet 25 mg PO QHS 11/14/24 11/14/24 History lisinopril 40 mg tablet 40 mg PO QHS 11/14/24 History venlafaxine 37.5 mg tablet 75 mg PO HS 11/14/24 History Allergies Allergy/AdvReac Type Severity Reaction Status Date / Time No Known Allergies Allergy Verified 11/14/24 21:37 Vital Signs Vital Signs - 24 hr 11/14/24 12:54 11/14/24 15:09 11/14/24 15:09 Temperature 98.2 F Pulse Rate 100 94 Respiratory Rate 16 Blood Pressure 123/71 Pulse Oximetry 100 96 Oxygen Delivery Room Air 11/14/24 16:40 11/14/24 17:08 Temperature 98.5 F Pulse Rate 91 90 Respiratory Rate 21 H 21 H Blood Pressure 113/76 126/75 Pulse Oximetry 95 96 Oxygen Delivery Exam Narrative: General: No acute distress appears stated age. HEENT: normocephalic, atraumatic. Mucous membranes moist. EOMI, PERRLA, bilateral sclera anicteric, no conjunctival injection. Neck supple without JVD, lymphadenopathy, or bruit. Respiratory: clear to ascultation bilaterally. No rales/rhonic/wheezes. Cardiovascular: Regular rate and rhythm, normal S1-S2 upon ascultation. No murmurs, rubs, or clicks. PMI is nondisplaced, capillary refill less than 3 second. Abdomen: Obese Soft, round, no pulsatile masses, nondistended and nontender. No rebound, no guarding. No CVA tenderness, no hepatosplenomegaly. Bowel sounds present to all four quadrants. No high pitch or tinkling sounds, resonant to percussion. Extremities: No cyanosis, clubbing, or edema present. Pulses are palpable 2/2. Active ROM to all four extremities. Neuro: Alert and orientated x 4. PERRLA. Cranial nerves 2-12 intact without focal deficit. Skin: Warm, dry, and intact, without rash, erythema, or lesion. Psych: pleasant, cooperative, normal speech, normal affect, no hallucinations, no dysarthia H&P: Results Labs Labs: Short CBC 11/14/24 Range/Units 13:02 WBC 11.3 H (4.5-10.0) K/mm3 Hgb 14.4 (14.0-18.0) g/dL Hct 43.7 (42.0-52.0) % Plt Count 493 H (150-375) k/mm3 BMP 11/14/24 13:02 Sodium 136 L Potassium 4.0 Chloride 100 Carbon Dioxide 25 BUN 24 H Creatinine 1.43 H Glucose 93 Calcium 8.9 Cardiac Enzymes 11/14/24 11/14/24 Range/Units 13:02 16:01 Troponin I < 0.012 < 0.012 (0.000-0.034) ng/mL Liver Function 11/14/24 Range/Units 13:02 Total Bilirubin 0.5 (0.2-1.3) mg/dL AST 27 (17-59) U/L ALT 46 (6-50) U/L Alkaline Phosphatase 75 (38-126) U/L Albumin 4.3 (3.5-5.1) g/dL Assessment and Plan Assessment and plan (1) Chest pain: Qualifiers: Chest pain type: unspecified Qualified Code(s): R07.9 - Chest pain, unspecified Code(s): R07.9 - Chest pain, unspecified Status: Acute Assessment and Plan: Trend troponins negative EKGs p.r.n. Aspirin given in the emergency room Cardiac stress test in the morning NPO midnight (2) Thyroid nodule: Code(s): E04.1 - Nontoxic single thyroid nodule Status: Acute Assessment and Plan: TSH low Free T3 and T4 pending Patient may benefit from a thyroid ultrasound in house (3) Fatty liver: Code(s): K76.0 - Fatty (change of) liver, not elsewhere classified Status: Acute Assessment and Plan: Liver enzymes within normal limits Patient quit drinking about a month ago Educated on lifestyle changes (4) NICOLE (acute kidney injury): Code(s): N17.9 - Acute kidney failure, unspecified Status: Acute Assessment and Plan: Likely from dehydration from vomiting IVF Avoid nephrotoxic medications BMP in the morning (5) Vomiting: Code(s): R11.10 - Vomiting, unspecified Status: Acute Assessment and Plan: Zofran IVF (6) JAKE on CPAP: Code(s): G47.33 - Obstructive sleep apnea (adult) (pediatric); Z99.89 - Dependence on other enabling machines and devices Status: Chronic Assessment and Plan: CPAP ordered Secondary to body habitus (7) Type 2 diabetes mellitus: Code(s): E11.9 - Type 2 diabetes mellitus without complications Status: Acute Assessment and Plan: Lou COLE Patient on semaglutide at home (8) Hyperlipidemia: Code(s): E78.5 - Hyperlipidemia, unspecified Status: Acute Assessment and Plan: Continue statin (9) Hypertension: Qualifiers: Hypertension type: primary hypertension Qualified Code(s): I10 - Essent ial (primary) hypertension Code(s): I10 - Essential (primary) hypertension Status: Chronic Assessment and Plan: Continue antihypertensives (10) Elevated lipase: Code(s): R74.8 - Abnormal levels of other serum enzymes Status: Acute Assessment and Plan: IVF for hydration Pancreas on CT is within normal limits Repeat lipase in the a.m. Quality VTE Prophylaxis VTE prophylaxis: mechanical ordered and pharmacologic ordered Hospitalist MIPS Advance Care Plan I have confirmed that the patient's Advanced Care Plan is present, code status is documented, or surrogate decision maker is listed in patient medical record.: Yes Medication Reconciliation I have utilized all available resources to obtain, update and review the patients current medications (includes all prescriptions, OTC, herbals, cannabis, and nutritional supplements).: Yes
[2024-11-14 18:30] LABS: Cholesterol 128 mg/dL (0-200); HDL Direct 40 mg/dL; Triglycerides 91 mg/dL (<150)
[2024-11-14] MEDS: LACTATED RINGERS 1,000 ML 100 ML IV CONT (18:35)
[2024-11-14 19:23] LABS: Troponin I < 0.012 ng/mL (0.000-0.034)
[2024-11-14 19:40] LABS: Thyroid Stimulating Hormone 0.247 uIU/mL (0.465-4.680)
[2024-11-14] MEDS: VENLAFAXINE HCL 75 MG TABLET PO (21:42)
[2024-11-14] MEDS: ATORVASTATIN 10 MG TABLET BY MOUTH (21:42)
[2024-11-14 21:54] LABS: Free T3 2.90 pg/mL (2.71-6.16)
[2024-11-15] VITALS (11 sets, daily range): BP systolic 123–147; BP diastolic 63–84; PULSE 77–105; RESP 15–17; TEMP 36.4–36.8; O2SAT 96–98
[2024-11-15] MEDS: LACTATED RINGERS 1,000 ML 100 ML IV CONT (03:51)
[2024-11-15 04:39] LABS: Hematocrit 42.5 % (42.0-52.0); Hemoglobin 13.6 g/dL (14.0-18.0); Immature Granulocyte Percent A 0.5 % (0-0.5); Lymphocytes Absolute Auto 1.42 K/mm3 (0.9-3.2); Mean Corpuscular HGB Conc 32.0 g/dl (32-36); Mean Corpuscular Hemoglobin 29.2 pg (26-34); Mean Corpuscular Volume 91.4 fl (80-100); Nucleated Red Blood Cells Absolute Auto 0.000 K/mm3 (0.0-0.012); Nucleated Red Blood Cells Perc 0.0 % (0.0-0.2); Platelet Count Result 493 k/mm3 (150-375); Red Blood Count 4.65 M/mm3 (4.6-6.20); White Blood Count 12.6 K/mm3 (4.5-10.0)
[2024-11-15 05:08] LABS: Anion Gap 7 mmol/L (4-12); Blood Urea Nitrogen 26 mg/dL (9-20); Calcium 8.9 mg/dL (8.4-10.2); Carbon Dioxide 28 mmol/L (22-30); Chloride 102 mmol/L (98-107); Estimated CRCL calculation 90 ml/min; Estimated Glomerular Filt Rate > 60; Glucose 94 mg/dL (65-110); Lipase 108 U/L (23-300); Potassium 4.6 mmol/L (3.4-5.0); Sodium 137 mmol/L (137-145)
--- NOTE | 2024-11-15 07:40 | P.PNIM_ITS ---
Progress Note: A&P Assessment and Plan (1) Chest pain: Qualifiers: Chest pain type: unspecified Qualified Code(s): R07.9 - Chest pain, unspecified Code(s): R07.9 - Chest pain, unspecified Status: Acute Assessment and Plan: Trend troponins negative EKGs p.r.n. Aspirin given in the emergency room Cardiac stress test in the morning NPO midnight (2) Thyroid nodule: Code(s): E04.1 - Nontoxic single thyroid nodule Status: Acute Assessment and Plan: TSH low Free T3 and T4 pending Patient may benefit from a thyroid ultrasound in house (3) Fatty liver: Code(s): K76.0 - Fatty (change of) liver, not elsewhere classified Status: Acute Assessment and Plan: Liver enzymes within normal limits Patient quit drinking about a month ago Educated on lifestyle changes (4) NICOLE (acute kidney injury): Code(s): N17.9 - Acute kidney failure, unspecified Status: Acute Assessment and Plan: Likely from dehydration from vomiting IVF Avoid nephrotoxic medications BMP in the morning (5) Vomiting: Code(s): R11.10 - Vomiting, unspecified Status: Acute Assessment and Plan: Zofran IVF (6) JAKE on CPAP: Code(s): G47.33 - Obstructive sleep apnea (adult) (pediatric); Z99.89 - Dependence on other enabling machines and devices Status: Chronic Assessment and Plan: CPAP ordered Secondary to body habitus (7) Type 2 diabetes mellitus: Code(s): E11.9 - Type 2 diabetes mellitus without complications Status: Acute Assessment and Plan: [facility] Patient on semaglutide at home (8) Hyperlipidemia: Code(s): E78.5 - Hyperlipidemia, unspecified Status: Acute Assessment and Plan: Continue statin (9) Hypertension: Qualifiers: Hypertension type: primary hypertension Qualified Code(s): I10 - Essential (primary) hypertension Code(s): I10 - Essential (primary) hypertension Status: Chronic Assessment and Plan: Continue antihypertensives (10) Elevated lipase: Code(s): R74.8 - Abnormal levels of other serum enzymes Status: Acute Assessment and Plan: IVF for hydration Pancreas on CT is within normal limits Repeat lipase in the a.m. Subjective Date/time seen: 11/15/24 07:40 Interval history: 49-year-old male past medical history of JAKE on CPAP and hypertension presents the hospital with chest pain that radiates up to his jaw and left arm. He states that he has been feeling unwell for the last 2 weeks and has had fever and vomiting. Last several days she just being getting out of bed due to feeling so sick. He states that on Sunday he was nauseous and vomiting. Patient has complaints of general malaise. On bedside exam he denies nausea vomiting, chest pain, jaw pain, arm pain. Lab work shows leukocytosis at 13.3, platelets of for her 93, sodium of 136, BUN of 24, creatinine 1.43, GFR of 53 no known history of CKD, 1st and 2nd troponin negative, lipase 962, influenza A/B, RSV, COVID negative. 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 EKG shows sinus rhythm. Pt is seen and examined. Stress test is scheduled for today in am. Review of Systems Review of Systems: 12 systems were reviewed and are negativ e except for as per HPI. Exam Narrative: General: No acute distress appears stated age. HEENT: normocephalic, atraumatic. Mucous membranes moist. EOMI, PERRLA, bilateral sclera anicteric, no conjunctival injection. Neck supple without JVD, lymphadenopathy, or bruit. Respiratory: clear to ascultation bilaterally. No rales/rhonic/wheezes. Cardiovascular: Regular rate and rhythm, normal S1-S2 upon ascultation. No murmurs, rubs, or clicks. PMI is nondisplaced, capillary refill less than 3 second. Abdomen: Obese Soft, round, no pulsatile masses, nondistended and nontender. No rebound, no guarding. No CVA tenderness, no hepatosplenomegaly. Bowel sounds present to all four quadrants. No high pitch or tinkling sounds, resonant to percussion. Extremities: No cyanosis, clubbing, or edema present. Pulses are palpable 2/2. Active ROM to all four extremities. Neuro: Alert and orientated x 4. PERRLA. Cranial nerves 2-12 intact without focal deficit. Skin: Warm, dry, and intact, without rash, erythema, or lesion. Psych: pleasant, cooperative, normal speech, normal affect, no hallucinations, no dysarthia Objective Data Vital Signs Vital Signs: Vital Signs - 24 hr 11/14/24 12:54 11/14/24 15:09 11/14/24 15:09 Temperature 98.2 F Pulse Rate 100 94 Respiratory Rate 16 Blood Pressure 123/71 Pulse Oximetry 100 96 Oxygen Delivery Room Air Fraction of Inspired Oxygen 11/14/24 16:40 11/14/24 17:08 11/14/24 17:20 Temperature 98.5 F 98.4 F Pulse Rate 91 90 92 Respiratory Rate 21 H 21 H 18 Blood Pressure 113/76 126/75 141/77 H Pulse Oximetry 95 96 96 Oxygen Delivery Fraction of Inspired Oxygen 11/14/24 18:00 11/14/24 19:42 11/14/24 20:00 Temperature 98.1 F Pulse Rate 80 100 106 H Respiratory Rate 20 Blood Pressure 125/61 Pulse Oximetry 95 Oxygen Delivery Fraction of Inspired Oxygen 11/14/24 21:20 11/14/24 21:29 11/14/24 22:00 Temperature Pulse Rate 100 103 H Respiratory Rate 20 Blood Pressure Pulse Oximetry 95 Oxygen Delivery Room Air CPAP Fraction of Inspired Oxygen 11/15/24 00:00 11/15/24 00:00 11/15/24 00:24 Temperature 98.3 F Pulse Rate 105 H 104 H 105 H Respiratory Rate 15 15 Blood Pressure 123/63 Pulse Oximetry 96 96 Oxygen Delivery Room Air Fraction of Inspired Oxygen 11/15/24 01:56 11/15/24 02:00 11/15/24 03:54 Temperature 97.5 F L Pulse Rate 96 86 Respiratory Rate 17 Blood Pressure 128/73 Pulse Oximetry 96 Oxygen Delivery CPAP Fraction of Inspired Oxygen 11/15/24 03:59 Temperature Pulse Rate 86 Respiratory Rate 17 Blood Pressure Pulse Oximetry 96 Oxygen Delivery CPAP Fraction of Inspired Oxygen 21 Intake/Output Intake/Output: Intake & Output 11/12/24 11/13/24 11/14/24 11/15/24 23:59 23:59 23:59 23:59 Intake Total 1000 1526.7 Output Total 550 840 Balance 450 686.7 Meds/Results Medications: Active Medications Generic Name Dose Route Start Last Admin Trade Name Freq PRN Reason Stop Dose Admin Acetaminophen 650 mg 11/14/24 17:41 Acetaminophen 325 Mg Tablet PO Q4H PRN Mild Pain (1-3) or Fever Hydrocodone Bitart/Acetaminophen 1 tab 11/14/24 17:41 Hydrocodone/Acetaminophen (*Crx) 5-325 Mg Tablet PO Q4H PRN Moderate Pain (4-6) Amlodipine Besylate 5 mg 11/15/24 21:00 Amlodipine Besylate 5 Mg Tablet PO QHS RITA Aspirin 81 mg 11/15/24 08:00 Aspirin 81 Mg Chewable Tablet PO DAILY@0800 RITA Atorvastatin Calcium 10 mg 11/14/24 21:00 11/14/24 21:42 Atorvastatin 10 Mg Tablet BY MOUTH 10 mg HS RITA Administration Bupropion HCl 150 mg 11/14/24 23:30 11/15/24 00:30 Bupropion Hcl Xl (24 Hr) 150 Mg Tabcr PO Not Given QHS RITA Dextrose 12.5 gm 11/14/24 17:43 Dextrose 50% 25 Gm/50 Ml Syringe IV PUSH PRN PRN Hypoglycemia Protocol Docusate Sodium 100 mg 11/14/24 17:50 11/14/24 18:34 Docusate Sodium 100 Mg Capsule PO Not Given BID [facility] Enoxaparin Sodium 40 mg 11/15/24 09:00 Enoxaparin 40 Mg/0.4 Ml Syringe SUB-Q DAILY RITA Glucagon 1 mg 11/14/24 17:43 Glucagon For Inj 1 Mg Vial IM PRN PRN Hypoglycemia Protocol Glucose 15 gm 11/14/24 17:43 Glucose Oral Gel 15 Gm Of Glucse In 37.5 Gm Tube PO PRN PRN Hypoglycemia Protocol Hydrochlorothiazide 25 mg 11/14/24 23:30 11/15/24 00:30 Hydrochlorothiazide 25 Mg Tablet PO Not Given QHS [facility] Lactated Ringer's 1,000 mls @ 100 mls/hr 11/14/24 17:45 11/15/24 03:51 Lr - Lactated Ringers Iv IV CONT 100 mls/hr .Q10H RITA Administration Dextrose 1,000 mls @ 100 mls/hr 11/14/24 17:43 Dextrose 5% 1,000 Ml IVPB PRN PRN Hypoglycemia Protocol Insulin Aspart 2 - 5 units 11/15/24 08:00 Insulin Aspart (*Bkc) 100 Units/Ml SUB-Q TIDWM [facility] Protocol Lisinopril 40 mg 11/14/24 23:30 11/15/24 00:30 Lisinopril 20 Mg Tablet PO Not Given QHS [facility] Morphine Sulfate 2 mg 11/14/24 17:45 Morphine Sulfate (*Crx) 4 Mg/Ml Inj IV PUSH Q4H PRN Pain Rated 7-10 Ondansetron HCl 4 mg 11/14/24 15:58 Ondansetron Inj 4 Mg/2 Ml Vial IV PUSH Q4H PRN Nausea Venlafaxine HCl 75 mg 11/14/24 21:00 11/14/24 21:42 Venlafaxine Hcl 75 Mg Tablet PO 75 mg HS RITA Administration Radiology Results: ITS Impressions Chest X-Ray 11/14/24 13:28 IMPRESSION: 1. No acute cardiopulmonary findings. Chest/Abdomen/Pelvis CTA 11/14/24 15:00 IMPRESSION: 1. No acute abnormality of the chest, abdomen or pelvis. Labs Labs: Laboratory Results - last 24 hr 11/14/24 11/14/24 11/14/24 13:02 16:01 18:46 WBC 11.3 H RBC 4.92 Hgb 14.4 Hct 43.7 MCV 88.8 MCH 29.3 MCHC 33.0 RDW 13.5 Plt Count 493 H MPV 8.4 Immature Gran % (Auto) 0.4 Neut % (Auto) 72.4 Lymph % (Auto) 12.9 L [place] % (Auto) 11.6 H Eos % (Auto) 2.4 Baso % (Auto) 0.3 Lymph # (Auto) 1.46 [place] # (Auto) 1.3 H Eos # (Auto) 0.3 Baso # (Auto) 0.0 Abs Immat Gran (auto) 0.04 H Absolute Neuts (auto) 8.2 H Absolute Nucleated RBC 0.000 Nucleated RBC % 0.0 PT 15.9 H INR 1.3 APTT 28.5 Sodium 136 L Potassium 4.0 Chloride 100 Carbon Dioxide 25 Anion Gap 11 BUN 24 H Creatinine 1.43 H Estim Creat Clear Calc 78 Estimated GFR 53 L Glucose 93 POC Capillary Glucose Calcium 8.9 Total Bilirubin 0.5 AST 27 ALT 46 Alkaline Phosphatase 75 Troponin I < 0.012 < 0.012 < 0.012 Total Protein 7.9 Albumin 4.3 Triglycerides 91 Cholesterol 128 LDL Cholesterol Direct 58 HDL Direct 40 Lipase 962 H TSH 0.247 L Thyroxine (T4) 6.35 Free T3 pg/mL 2.90 Influenza A (RT-PCR) Negative Influenza B (RT-PCR) Negative RSV (RT-PCR) Negative SARS-CoV-2 RNA (RT-PCR) Negative 11/14/24 11/15/24 11/15/24 19:44 03:46 06:55 WBC 12.6 H RBC 4.65 Hgb 13.6 L Hct 42.5 MCV 91.4 MCH 29.2 MCHC 32.0 RDW 13.5 Plt Count 493 H MPV 8.8 Immature Gran % (Auto) 0.5 Neut % (Auto) 78.6 H Lymph % (Auto) 11.3 L [place] % (Auto) 9.0 H Eos % (Auto) 0.4 Baso % (Auto) 0.2 Lymph # (Auto) 1.42 [place] # (Auto) 1.1 H Eos # (Auto) 0.1 Baso # (Auto) 0.0 Abs Immat Gran (auto) 0.06 H Absolute Neuts (auto) 9.9 H Absolute Nucleated RBC 0.000 Nucleated RBC % 0.0 PT INR APTT Sodium 137 Potassium 4.6 Chloride 102 Carbon Dioxide 28 Anion Gap 7 BUN 26 H Creatinine 1.18 Estim Creat Clear Calc 90 Estimated GFR > 60 Glucose 94 POC Capillary Glucose 268 H 95 Calcium 8.9 Total Bilirubin AST ALT Alkaline Phosphatase Troponin I Total Protein Albumin Triglycerides Cholesterol LDL Cholesterol Direct HDL Direct Lipase 108 TSH Thyroxine (T4) Free T3 pg/mL Influenza A (RT-PCR) Influenza B (RT-PCR) RSV (RT-PCR) SARS-CoV-2 RNA (RT-PCR) Quality VTE Prophylaxis VTE prophylaxis: mechanical ordered and pharmacologic ordered
[2024-11-15] MEDS: DOCUSATE SODIUM 100 MG CAPSULE PO (08:54)
[2024-11-15] MEDS: ASPIRIN 81 MG CHEWABLE TABLET PO (08:54)
[2024-11-15] MEDS: ACETAMINOPHEN 325 MG TABLET 650 MG PO (10:48)
--- NOTE | 2024-11-15 12:48 | P.DS_ITS ---
DS: Admitting Diagnosis Discharge Date 11/15 Admitting Diagnosis chest pain DS: Discharge Diagnosis Discharge Diagnosis (1) Chest pain: Qualifiers: Chest pain type: unspecified Qualified Code(s): R07.9 - Chest pain, unspecified Code(s): R07.9 - Chest pain, unspecified Status: Acute (2) Thyroid nodule: Code(s): E04.1 - Nontoxic single thyroid nodule Status: Acute (3) Fatty liver: Code(s): K76.0 - Fatty (change of) liver, not elsewhere classified Status: Acute (4) NICOLE (acute kidney injury): Code(s): N17.9 - Acute kidney failure, unspecified Status: Acute (5) Vomiting: Code(s): R11.10 - Vomiting, unspecified Status: Acute (6) JAKE on CPAP: Code(s): G47.33 - Obstructive sleep apnea (adult) (pediatric); Z99.89 - Dependence on other enabling machines and devices Status: Chronic (7) Type 2 diabetes mellitus: Code(s): E11.9 - Type 2 diabetes mellitus without complications Status: Acute (8) Hyperlipidemia: Code(s): E78.5 - Hyperlipidemia, unspecified Status: Acute (9) Hypertension: Qualifiers: Hypertension type: primary hypertension Qualified Code(s): I10 - Essential (primary) hypertension Code(s): I10 - Essential (primary) hypertension Status: Chronic (10) Elevated lipase: Code(s): R74.8 - Abnormal levels of other serum enzymes Status: Acute DS: Summary Hospital Course Hospital Course: 49-year-old male past medical history of JAKE on CPAP and hypertension presents the hospital with chest pain that radiates up to his jaw and left arm. He states that he has been feeling unwell for the last 2 weeks and has had fever and vomiting. Last several days she just being getting out of bed due to feeling so sick. He states that on Sunday he was nauseous and vomiting. Patient has complaints of general malaise. On bedside exam he denies nausea vomiting, chest pain, jaw pain, arm pain. Lipase was elevated 962 but back to normal 108. WBC elavated this am. Afebrile, VS normal- will have wbc recheck in few days after discharge. Chest xray negative, ct chest/abd-no acute inflammatory process. UA is ordered but no urinary symptoms though. 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 will order ultrasound prior to discharge. TSH 0.247 but t3/t4 normal- indicative of subclinical hyperthyroidism. Will need to have tsh/t3.t4 numbers rechecked in 1-2 months (depending on ultrasound results). Will need a close f/u with PCP for further monitoring and eval. Chest pain- both trop neg. ekg unremarkable. we are not able to do stress test this weekend. Discussed in great details with pt and . Pt does have risk factors: metabolic syndrome-diabetes, obesity, hld, htn-so it is prudent to eval for cardiac causes for chest pain. However, pt is currently pain free, work up so far unremarkable -risk and benefits discussed with pt and they chose to go home and f/u with PCP for further work up. he will need to be on statin as diabetes and obesity present, so need to optimize tx to reduce ASCVD risks. Need to discuss with pcp Status at Discharge Functional status at discharge: independent ambulation Overall status at discharge: patient is back to baseline Time Spent with Patient Time attestation: Total time spent providing and/or coordinating discharge services: Exam Narrative: General: No acute distress appears stated age. calm and pleasant,no chest pain HEENT: normocephalic, atraumatic. Mucous membranes moist. EOMI, PERRLA, bi lateral sclera anicteric, no conjunctival injection. Neck supple without JVD, lymphadenopathy, or bruit. Respiratory: clear to ascultation bilaterally. No rales/rhonic/wheezes. Cardiovascular: Regular rate and rhythm, normal S1-S2 upon ascultation. No murmurs, rubs, or clicks. PMI is nondisplaced, capillary refill less than 3 second. Abdomen: Obese Soft, round, no pulsatile masses, nondistended and nontender. No rebound, no guarding. No CVA tenderness, no hepatosplenomegaly. Bowel sounds present to all four quadrants. No high pitch or tinkling sounds, resonant to percussion. Extremities: No cyanosis, clubbing, or edema present. Pulses are palpable 2/2. Active ROM to all four extremities. Neuro: Alert and orientated x 4. PERRLA. Cranial nerves 2-12 intact without focal deficit. Skin: Warm, dry, and intact, without rash, erythema, or lesion. Psych: pleasant, cooperative, normal speech, normal affect, no hallucinations, no dysarthia DS: Data Data Completed and Pending Labs on day of discharge: Labs from last 24 hours 11/15/24 11/15/24 11/15/24 11:20 06:55 03:46 WBC 12.6 H RBC 4.65 Hgb 13.6 L Hct 42.5 MCV 91.4 MCH 29.2 MCHC 32.0 RDW 13.5 Plt Count 493 H MPV 8.8 Immature Gran % (Auto) 0.5 Neut % (Auto) 78.6 H Lymph % (Auto) 11.3 L [place] % (Auto) 9.0 H Eos % (Auto) 0.4 Baso % (Auto) 0.2 Lymph # (Auto) 1.42 [place] # (Auto) 1.1 H Eos # (Auto) 0.1 Baso # (Auto) 0.0 Abs Immat Gran (auto) 0.06 H Absolute Neuts (auto) 9.9 H Absolute Nucleated RBC 0.000 Nucleated RBC % 0.0 PT INR APTT Sodium 137 Potassium 4.6 Chloride 102 Carbon Dioxide 28 Anion Gap 7 BUN 26 H Creatinine 1.18 Estim Creat Clear Calc 90 Estimated GFR > 60 Glucose 94 POC Capillary Glucose 90 95 Calcium 8.9 Total Bilirubin AST ALT Alkaline Phosphatase Troponin I Total Protein Albumin Triglycerides Cholesterol LDL Cholesterol Direct HDL Direct Lipase 108 TSH Thyroxine (T4) Free T3 pg/mL Influenza A (RT-PCR) Influenza B (RT-PCR) RSV (RT-PCR) SARS-CoV-2 RNA (RT-PCR) 11/14/24 11/14/24 11/14/24 19:44 18:46 16:01 WBC RBC Hgb Hct MCV MCH MCHC RDW Plt Count MPV Immature Gran % (Auto) Neut % (Auto) Lymph % (Auto) [place] % (Auto) Eos % (Auto) Baso % (Auto) Lymph # (Auto) [place] # (Auto) Eos # (Auto) Baso # (Auto) Abs Immat Gran (auto) Absolute Neuts (auto) Absolute Nucleated RBC Nucleated RBC % PT INR APTT Sodium Potassium Chloride Carbon Dioxide Anion Gap BUN Creatinine Estim Creat Clear Calc Estimated GFR Glucose POC Capillary Glucose 268 H Calcium Total Bilirubin AST ALT Alkaline Phosphatase Troponin I < 0.012 < 0.012 Total Protein Albumin Triglycerides Cholesterol LDL Cholesterol Direct HDL Direct Lipase TSH 0.247 L Thyroxine (T4) Free T3 pg/mL Influenza A (RT-PCR) Negative Influenza B (RT-PCR) Negative RSV (RT-PCR) Negative SARS-CoV-2 RNA (RT-PCR) Negative 11/14/24 13:02 WBC 11.3 H RBC 4.92 Hgb 14.4 Hct 43.7 MCV 88.8 MCH 29.3 MCHC 33.0 RDW 13.5 Plt Count 493 H MPV 8.4 Immature Gran % (Auto) 0.4 Neut % (Auto) 72.4 Lymph % (Auto) 12.9 L [place] % (Auto) 11.6 H Eos % (Auto) 2.4 Baso % (Auto) 0.3 Lymph # (Auto) 1.46 [place] # (Auto) 1.3 H Eos # (Auto) 0.3 Baso # (Auto) 0.0 Abs Immat Gran (auto) 0.04 H Absolute Neuts (auto) 8.2 H Absolute Nucleated RBC 0.000 Nucleated RBC % 0.0 PT 15.9 H INR 1.3 APTT 28.5 Sodium 136 L Potassium 4.0 Chloride 100 Carbon Dioxide 25 Anion Gap 11 BUN 24 H Creatinine 1.43 H Estim Creat Clear Calc 78 Estimated GFR 53 L Glucose 93 POC Capillary Glucose Calcium 8.9 Total Bilirubin 0.5 AST 27 ALT 46 Alkaline Phosphatase 75 Troponin I < 0.012 Total Protein 7.9 Albumin 4.3 Triglycerides 91 Cholesterol 128 LDL Cholesterol Direct 58 HDL Direct 40 Lipase 962 H TSH Thyroxine (T4) 6.35 Free T3 pg/mL 2.90 Influenza A (RT-PCR) Influenza B (RT-PCR) RSV (RT-PCR) SARS-CoV-2 RNA (RT-PCR) Discharge Plan Discharge Attending physician on discharge: Dotty Calderón Discharging Clinician: Vicenta Funes Patient Disposition: Home Activity: june shower Diet: heart healthy and diabetic Discharge Instructions: YOu were admitted for chest pain. Lipase was elevated 962 but back to normal 108. WBC elevated this am. Afebrile-no fever, vial sings normal- will have wbc recheck in few days after discharge. Chest xray negative, ct chest/abd-no acute inflammatory process. UA is ordered but no urinary symptoms though. 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 will order ultrasound prior to discharge. TSH 0.247 but t3/t4 normal- indicative of subclinical hyperthyroidism. Will need to have tsh/t3.t4 numbers rechecked in 1-2 months (depending on ultrasound results). Will need a close f/u with PCP for further monitoring and evaluation. Chest pain- both trop neg. ekg unremarkable. we are not able to do stress test this weekend. Discussed in great details with pt and . Pt does have risk factors: metabolic syndrome-diabetes, obesity, hld, htn-so it is prudent to eval for cardiac causes for chest pain. However, since you currently pain free, work up so far unremarkable -after risk and benefits discussion- you chose to go home and f/u with PCP for further work up. Please return right away if chest pain r eturns and/or you develop any new symptoms. Please discuss initiating statin therapy with PCP as well to reduce ASCVD risks. Patient Instructions: Antibiotic Form Patient Language: Maltese Stand Alone Forms: General Discharge Information Follow-up/Referrals: Justyn Rodriguez MD [Primary Care Provider, Family Practice] - 2 Weeks Discharge Medications: New aspirin [Children's Aspirin] 81 mg Tablet,Chewable 81 mg PO DAILY@0800 Qty: 30 0RF Continued venlafaxine 37.5 mg tablet 75 mg PO HS amlodipine 5 mg tablet 5 mg PO QHS hydrochlorothiazide 25 mg tablet 25 mg PO QHS lisinopril 40 mg tablet 40 mg PO QHS bupropion HCl [Wellbutrin XL] 150 mg tablet extended release 24 hr 150 mg PO QHS atorvastatin 10 mg tablet See Rx Instructions .ROUTE .COMPLEX Qty: 30 6RF Dose Instruction: TAKE 1 TABLET BY MOUTH EVERY DAY AT BEDTIME Rx Instructions: TAKE 1 TABLET BY MOUTH EVERY DAY AT BEDTIME semaglutide 1 mg/dose (4 mg/3 mL) pen injector 1 mg subcut WEEKLY Qty: 3 0RF Patient Comments: Pt takes on Sundays. Other Ambulatory Orders: Complete Blood Count no Diff (Routine) Timeframe: 1 Week Location: Determined by Patient Ordered By: Vicenta Funes Date of admission: 11/14/24 15:58 Primary Care Provider: Justyn Rodriguez Admitting Provider: Elver De La Vega Attending physician on admission: Elver De La Vega Condition: Serious Quality VTE Prophylaxis VTE prophylaxis: mechanical ordered and pharmacologic ordered
== END 2024-11-15 14:23 | disposition home or self-care (01) ==
LOC: ANHED 15:57 → ANHIMU 11-15 13:36
PROVIDERS: Nurse Practitioner Gerontology; Student in an Organized Health Care Education/Training Program; Admitting Provider General Practice; Emergency Provider Emergency Medicine; PCP Family Medicine Adolescent Medicine; Visit Provider General Practice
DX: R07.9 Chest pain, unspecified (principal); R11.2 Nausea with vomiting, unspecified; E04.1 Nontoxic single thyroid nodule; N17.9 Acute kidney failure, unspecified; K76.0 Fatty (change of) liver, not elsewhere classified; I10 Essential (primary) hypertension; E11.9 Type 2 diabetes mellitus without complications; Z79.85 Long-term (current) use of injectable non-insulin antidiabetic drugs; G47.33 Obstructive sleep apnea (adult) (pediatric); Z99.89 Dependence on other enabling machines and devices; R74.8 Abnormal levels of other serum enzymes; E78.00 Pure hypercholesterolemia, unspecified; Z20.822 Contact with and (suspected) exposure to COVID-19; E66.01 Morbid (severe) obesity due to excess calories; Z68.42 Body mass index [BMI] 45.0-49.9, adult; F17.290 Nicotine dependence, other tobacco product, uncomplicated; F33.9 Major depressive disorder, recurrent, unspecified; Z82.49 Family history of ischemic heart disease and other diseases of the circulatory system; Z80.3 Family history of malignant neoplasm of breast; Z82.5 Family history of asthma and other chronic lower respiratory diseases
CPT/HCPCS: 36415; 71046; 71275; 74174; 76536; 80048; 80053; 80061; 82948; 83690; 84436; 84443; 84481; 84484; 85025; 85610; 85730; 87637; 93005; 96360; 96361; 99285; A9270; G0378; J7030; J7120; Q9967